=== PATIENT | female | born 1990 ===

== ENCOUNTER 2019-03-14 11:10 | Inpatient (IN) | payer OTHER ==
[~2019-03-14] VITALS: Ht 170.2 cm; Wt 75.9 kg
[~2019-03-14 11:10] MED LIST: IBUP800 PO; OXYACE5T PO; SERT50 PO; Verotin-Gr Cap1 EACH PO
[2019-03-14] MEDS ORDERED: LEVSOD25 PO (11:37)
[2019-03-14 11:45] LABS: BASOPHILS ABSOLUTE AUTO 0.01 K/mm3 (0.00-0.23); BASOPHILS PERCENT AUTO 0 % (0-2); EOSINOPHILS PERCENT AUTO 0 % (0-6); Hematocrit 34.8 % (33.0-51.0); Hemoglobin 11.3 g/dL (11.5-16.0); IMMATURE GRAN ABSOLUTE AUTO 0.03 K/mm3 (0.00-0.10); IMMATURE GRAN PERCENT AUTO 0 % (0-1); LYMPHOCYTES ABSOLUTE AUTO 1.53 K/mm3 (0.84-5.20); LYMPHOCYTES PERCENT AUTO 21 % (21-46); MONOCYTES ABSOLUTE AUTO 0.67 K/mm3 (0.16-1.47); MONOCYTES PERCENT AUTO 9 % (4-13); Mean Corpuscular HGB 27.1 pg (26.0-34.0); Mean Corpuscular HGB Conc 32.5 g/dL (31.5-36.5); Mean Corpuscular Volume 84 fL (80-100); NEUTROPHILS ABSOLUTE AUTO 5.21 K/mm3 (1.96-9.15); NEUTROPHILS PERCENT AUTO 70 % (41-73); Platelet Count 142 K/mm3 (150-400); RDW Coefficient Variation 14.6 % (11.7-14.2); RDW Standard Deviation 44.7 fL (35.1-46.3); Red Blood Cell Count 4.17 M/mm3 (3.80-5.20); White Blood Cell Count 7.45 K/mm3 (4.00-11.30)
[2019-03-15 05:35] LABS: BASOPHILS ABSOLUTE AUTO 0.02 K/mm3 (0.00-0.23); BASOPHILS PERCENT AUTO 0 % (0-2); EOSINOPHILS ABSOLUTE AUTO 0.01 K/mm3 (0.00-0.68); EOSINOPHILS PERCENT AUTO 0 % (0-6); Hematocrit 31.9 % (33.0-51.0); IMMATURE GRAN ABSOLUTE AUTO 0.04 K/mm3 (0.00-0.10); IMMATURE GRAN PERCENT AUTO 0 % (0-1); LYMPHOCYTES ABSOLUTE AUTO 1.91 K/mm3 (0.84-5.20); LYMPHOCYTES PERCENT AUTO 19 % (21-46); MONOCYTES ABSOLUTE AUTO 0.97 K/mm3 (0.16-1.47); MONOCYTES PERCENT AUTO 9 % (4-13); Mean Corpuscular HGB 26.6 pg (26.0-34.0); Mean Corpuscular HGB Conc 31.3 g/dL (31.5-36.5); Mean Corpuscular Volume 85 fL (80-100); NEUTROPHILS ABSOLUTE AUTO 7.33 K/mm3 (1.96-9.15); NEUTROPHILS PERCENT AUTO 71 % (41-73); Platelet Count 127 K/mm3 (150-400); RDW Coefficient Variation 14.5 % (11.7-14.2); RDW Standard Deviation 44.5 fL (35.1-46.3); Red Blood Cell Count 3.76 M/mm3 (3.80-5.20); White Blood Cell Count 10.28 K/mm3 (4.00-11.30)
[2019-03-15 05:46] LABS: Mean Platelet Volume 14.5 fL (9.1-12.4)
[2019-03-15] MEDS ORDERED: IBUP800 PO (11:57)
[2019-03-15] MEDS ORDERED: Percocet 5-3251 EACH PO (11:58)
== END 2019-03-15 18:40 | disposition home or self-care (01) | DRG 807 ==
LOC: OBS 11:10 → BC 11:28
PROVIDERS: ADMIT Nurse Practitioner Obstetrics & Gynecology
PROC: 10E0XZZ Delivery of Products of Conception, External Approach (ICD-10-PCS; principal; 2019-03-15)
PROC: 0HQ9XZZ Repair Perineum Skin, External Approach (ICD-10-PCS; 2019-03-15)
PROC: 10907ZC Drainage of Amniotic Fluid, Therapeutic from Products of Conception, Via Natural or Artificial Opening (ICD-10-PCS; 2019-03-15)
DX: O70.0 First degree perineal laceration during delivery (principal); Z37.0 Single live birth; Z3A.40 40 weeks gestation of pregnancy
CPT/HCPCS: 36415; 85025; 87070; 87205; A9270; J1885; J2210; J2590; J3010; J7120

== ENCOUNTER 2023-05-26 06:23 | Day surgery (SDC) | payer OTHER ==
[~2023-05-26] VITALS: Ht 170.2 cm; Wt 64.0 kg
[~2023-05-26 06:23] MED LIST changes: +LEVSOD25 PO; +Percocet 5-3251 EACH PO
[2023-05-26] MEDS ORDERED: Lactated Ringer's 1,000 ML IV ONE ×2 (06:27→07:13)
[2023-05-26] MEDS ORDERED: AMPDEX5 PO (06:56)
[2023-05-26] MEDS ORDERED: Ropivacaine 0.5% HCl/Pf 5 MG/ML 20ML VIAL ONE (07:06)
[2023-05-26] MEDS ORDERED: EPINEPhrine HCl 1 MG / ML 30ML Vial ONE (07:06)
[2023-05-26] MEDS ORDERED: CeFAZolin Sodium 2,000 MG VIAL ONE (07:13)
[2023-05-26] MEDS ORDERED: NS 50 ML IV ONE (07:13)
[2023-05-26] MEDS ORDERED: FentaNYL Citrate 50 MCG/ML 2 ML Injection ONE ×2 (07:16→08:49)
[2023-05-26] MEDS ORDERED: propofoL 20 ML IV ONE (07:16)
[2023-05-26] MEDS ORDERED: Clindamycin 900mg in D5W 50ML 50 ML IV ONE (07:30)
[2023-05-26] MEDS ORDERED: Dexamethasone Sod Phos 10 MG/ML 1ML VIAL ONE (07:41)
--- NOTE | 2023-05-26 07:56 | NUR ---
05/26/23 0756 Ana Maria Beltre ROPIVACAINE 0.5% 30ML MIXED AND VERIFIED W/ EPI 0.15ML (1MG/ML) TO MAKE ROPIVACAINE 0.5% W/ EPI 1:200,000
[2023-05-26] MEDS ORDERED: Ondansetron HCl 2 MG / ML 2ML Vial ONE ×2 (08:02→09:54)
[2023-05-26 09:20] VITALS: BP 117/77
[2023-05-26] MEDS ORDERED: Ketorolac Tromethamine 30mg Vial ONE (09:34)
[2023-05-26] MEDS ORDERED: Metoclopramide HCl 5MG / ML 2ML Vial ONE (10:24)
[2023-05-26] MEDS ORDERED: Scopolamine Hydrobromide Patch ONE (10:42)
--- NOTE | 2023-05-26 11:01 | NUR ---
05/26/23 1101 Polly Varela RN RECIEVED REPORT AT 1050 FROM [email or web address]. PT WAS RESTING IN CHAIR WITH EYES CLOSED. PT STATED PAIN WAS 0/10. PT STATED SHE WAS NAUSEATED. RN ADMINISTERED SCOPALAMINE PATCH ORDERED BEHIND THE LEFT EAR. PT NOW STATES NAUSEA IS RESOLVED AND IS READY FOR DISCHARGE. PT DRESSING WITH HELP FROM . PT SENT HOME WITH ICE PACK, PERSONAL BELONGINGS, AND DISCHARGE INSTRUCTIONS. PT VOICED SATISFACTION WITH HER CARE.
== END 2023-05-26 11:01 | disposition home or self-care (01) ==
LOC: ORSCSDS 06:23
PROVIDERS: Podiatrist Foot & Ankle Surgery
PROC: 0SGK04Z Fusion of Right Tarsometatarsal Joint with Internal Fixation Device, Open Approach (ICD-10-PCS; principal; 2023-05-26 07:30)
DX: M21.611 Bunion of right foot (principal); E03.9 Hypothyroidism, unspecified; F90.9 Attention-deficit hyperactivity disorder, unspecified type; Z79.899 Other long term (current) drug therapy
CPT/HCPCS: A9270; C1713; J0171; J0690; J1100; J1885; J2405; J2704; J2765; J2795; J3010; J7120

== ENCOUNTER 2024-12-20 09:39 | Day surgery (SDC) | payer OTHER ==
[~2024-12-20] VITALS: Ht 170.2 cm; Wt 63.0 kg
[~2024-12-20 09:39] MED LIST changes: +ALBU90OI; +AMPDEX5 PO; +Bupivacaine 0.5% W/EPI 1:200000 SDV 30 ML Vial ONE; +CETI5; +FentaNYL Citrate 50 MCG/ML 2 ML Injection ONE; +L-THEANINE100 MG; +Midazolam HCl 1MG / ML 2ML Vial ONE; +PROBIOTIC
[2024-12-20] MEDS ORDERED: CeFAZolin Sodium 2,000 MG VIAL ONE (09:58)
[2024-12-20] MEDS ORDERED: Clindamycin 600mg in D5W 50 ML IV ONE (11:38)
[2024-12-20] MEDS ORDERED: Midazolam HCL 1 MG/ML 5MLVIAL ONE (11:44)
[2024-12-20] MEDS ORDERED: Dexmedetomidine HCL 200 MCG / 2 ML ONE (11:56)
[2024-12-20] MEDS ORDERED: Dexamethasone Sod Phos 10 MG/ML 1ML VIAL ONE (12:05)
[2024-12-20] MEDS ORDERED: Ondansetron HCl 2 MG / ML 2ML Vial ONE (12:05)
[2024-12-20] MEDS ORDERED: Flumazenil 0.1 MG / ML 5ML Vial ONE ×2 (13:22)
--- NOTE | 2024-12-20 13:31 | NUR ---
12/20/[address] REVERSAL FLUMAZENIL MEDICTION PER PT REQUEST.
[2024-12-20 13:54] VITALS: BP 117/76
== END 2024-12-20 14:37 | disposition home or self-care (01) ==
LOC: ORSCSDS 09:39
PROVIDERS: Podiatrist Foot & Ankle Surgery
PROC: 0YP90YZ Removal of Other Device from Right Lower Extremity, Open Approach (ICD-10-PCS; principal; 2024-12-20 11:45)
DX: T84.84XA Pain due to internal orthopedic prosthetic devices, implants and grafts, initial encounter (principal); E03.9 Hypothyroidism, unspecified; F90.9 Attention-deficit hyperactivity disorder, unspecified type; Z79.899 Other long term (current) drug therapy
CPT/HCPCS: A6253; A9270; J0690; J1100; J2250; J2405; J2704; J3010; J7120